=== PATIENT | female | born 1940 | race Caucasian/White ===

== ENCOUNTER 2023-01-29 17:05 | Emergency (ER) | payer MEDICARE, BC ==
[~2023-01-29] VITALS: Ht 142.2 cm; Wt 30.8 kg
[2023-01-29 19:21] VITALS: BP 116/60; TEMP 98.6; O2SAT 99
== END 2023-01-29 19:21 | disposition home or self-care (01) ==
LOC: ER 17:08
DX: S61.412A Laceration without foreign body of left hand, initial encounter (principal); S61.411A Laceration without foreign body of right hand, initial encounter; I10 Essential (primary) hypertension; X58.XXXA Exposure to other specified factors, initial encounter; Y93.89 Activity, other specified; Y92.89 Other specified places as the place of occurrence of the external cause; Y99.8 Other external cause status